=== PATIENT | female | born 1995 | race Caucasian/White ===

== ENCOUNTER 2021-06-05 16:22 | Emergency (ER) | payer SELFPAY ==
[~2021-06-05] VITALS: Ht 160 cm; Wt 88.0 kg
[2021-06-05 16:33] VITALS: BP 114/71
[2021-06-05] MEDS ORDERED: TOPUD PO (16:37)
[2021-06-05] MEDS ORDERED: CYCL5TAB MT (18:47)
== END 2021-06-05 19:02 | disposition home or self-care (01) ==
LOC: ER 16:22
DX: S39.012A Strain of muscle, fascia and tendon of lower back, initial encounter (principal); V49.49XA Driver injured in collision with other motor vehicles in traffic accident, initial encounter; Y93.89 Activity, other specified; Y92.488 Other paved roadways as the place of occurrence of the external cause
CPT/HCPCS: 99281; 99283